=== PATIENT | female | born 1985 | race Caucasian/White ===

== ENCOUNTER → 2018-10-13 | Outpatient (CLI) | payer OTHER ==
[2018-10-13 11:04] LABS: ABSOLUTE BASOPHILS # (AUTO) 0.1 10^3/uL (0.0-0.2); ABSOLUTE EOSINOPHILS # (AUTO) 0.2 10^3/uL (0.0-0.6); ABSOLUTE MONOCYTES (AUTO) 1.1 10^3/uL (0.1-1.4); ABSOLUTE NEUT (AUTO) 6.7 10^3/uL (1.7-8.2); BASOPHILS % (AUTO) 0.7 % (0-2); EOSINOPHILS % (AUTO) 2.4 % (0-6); HEMATOCRIT 48.4 % (36.0-47.0); HEMOGLOBIN 16.8 g/dL (12.0-15.5); MEAN CORPUSCULAR HEMOGLOBIN 31.1 pg (27.0-33.4); MEAN CORPUSCULAR HGB CONC 34.7 g/dL (32.0-36.0); MEAN CORPUSCULAR VOLUME 90 fl (80-97); MONOCYTES % (AUTO) 10.7 % (3-13); PLATELET COUNT 252 10^3/uL (150-450); RED BLOOD COUNT 5.39 10^6/uL (3.72-5.28); RED CELL DISTRIBUTION WIDTH 13.8 % (11.5-14.0); SEGMENTED NEUTROPHILS % (AUTO) 66.2 % (42-78); TOTAL CELLS COUNTED % (AUTO) 100 %; WHITE BLOOD COUNT 10.2 10^3/uL (4.0-10.5)
[2018-10-13 11:26] LABS: ALANINE AMINOTRANSFERASE 55 U/L (9-52); ALBUMIN 4.5 g/dL (3.5-5.0); ALKALINE PHOSPHATASE 99 U/L (38-126); ANION GAP 12 (5-19); ASPARTATE AMINO TRANSFERASE 30 U/L (14-36); BILIRUBIN,DIRECT 0.3 mg/dL (0.0-0.4); BILIRUBIN,TOTAL 0.4 mg/dL (0.2-1.3); BLOOD UREA NITROGEN 14 mg/dL (7-20); CALCIUM 9.7 mg/dL (8.4-10.2); CARBON DIOXIDE 25 mmol/L (22-30); CHLORIDE 104 mmol/L (98-107); GLUCOSE 99 mg/dL (75-110); POTASSIUM 4.3 mmol/L (3.6-5.0); SODIUM 140.6 mmol/L (137-145); TOTAL PROTEIN 7.1 g/dL (6.3-8.2)
[2018-10-14 16:34] LABS: CHOLESTEROL 152.89 mg/dL (0-200); TRIGLYCERIDES 105 mg/dL (<150)
[2018-10-14 16:45] LABS: DIRECT LDL 111 mg/dL (<100)
== END ==
LOC: CCC 09:34
DX: Z00.00 Encounter for general adult medical examination without abnormal findings (principal)
CPT/HCPCS: 36415; 80053; 80061; 83036; 84443; 85025

== ENCOUNTER → 2018-11-04 | Outpatient (CLI) | payer OTHER ==
--- NOTE | 2018-11-04 18:05 | RADIOLOGY REPORT (SQ) ---
EXAM DESCRIPTION: MRI LUMBAR SPINE WITHOUT COMPLETED DATE/TIME: 11/04/2018 5:34 pm REASON FOR STUDY: (M54.5) LOW BACK PAIN M54.5 LOW BACK PAIN COMPARISON: None. TECHNIQUE: Sagittal and Axial imaging includes T1, T2, STIR and gradient echo sequences. Coronal T2/ HASTE imaging. LIMITATIONS: None. FINDINGS: VISUALIZED UPPER ABDOMEN: Limited evaluation. No acute or suspicious findings suggested. SEGMENTATION: No transitional anatomy. The lowest well-developed disc space is labeled L5-S1. ALIGNMENT: Anatomic. VERTEBRAE: Intact. BONE MARROW: Normal. No marrow replacement or reactive changes. DISC SIGNAL: Decreased height of the L4-5 disc space with decreased signal intensity. Annular tear a t this level. POSTERIOR ELEMENTS: Generally intact. No pars defect evident. HARDWARE: None in the spine. CORD AND CONUS: Normal in size and signal intensity. Conus at the T12-L1 level. SOFT TISSUES: No aortic aneurysm seen. No bulky retroperitoneal adenopathy or mass. No paraspinal mas s or fluid. L1-L2: No significant spinal stenosis or exit foraminal stenosis. L2-L3: No significant spinal stenosis or exit foraminal stenosis. L3-L4: No significant spinal stenosis or exit foraminal stenosis. L4-L5: Right central/ paracentral disc protrusion that displaces the traversing right nerve root. No foraminal stenosis. L5-S1: No significant spinal stenosis or exit foraminal stenosis. LOWER THORACIC: Incompletely imaged. No stenosis seen. SACRUM: Visualized upper sacrum intact. OTHER: No other significant findings. IMPRESSION: Right central/paracentral disc protrusion that displaces the traversing nerve root. TECHNICAL DOCUMENTATION: JOB ID: [id number]- All Rights Reserved Reading location - IP/workstation name: [email or web address]
== END ==
LOC: RAD 16:11
DX: M54.5 Low back pain (principal)
CPT/HCPCS: 72148

== ENCOUNTER 2018-12-28 20:35 | Emergency (ER) | payer OTHER ==
[2018-12-29] MEDS ORDERED: HYDROMORPHONE HCL INJ/PF 2 MG/ML AMPULE IM ONE (00:02)
[2018-12-29] MEDS ORDERED: DIAZEPAM INJ 10 MG/2 ML DISP.SYRIN IM ONE (01:02)
--- NOTE | 2018-12-29 02:28 | ER Document Report ---
ED General - General Chief Complaint: Low Back Pain Stated Complaint: BACK PAIN Time Seen by Provider: 12/28/18 23:41 Primary Care Provider: [facility] [Primary Care Provider] - Follow up in 3-5 days Notes: Patient is a 33-year-old female presents with complaint of low back pain patient has chronic low back pain but started having spasms into the muscles of her back that is every time she tries to move. She denies any weakness or numbness into her legs. No loss of bowel control. No urinary retention. No fevers. No recent trauma or injuries. No other complaints at this time. TRAVEL OUTSIDE OF THE [place] IN LAST 30 DAYS: No - Related Data Allergies/Adverse Reactions: codeine Allergy (Verified 12/28/18 23:23) Past Medical History - Social History Smoking Status: Current Every Day Smoker Chew tobacco use (# tins/day): No Frequency of alcohol use: Rare Drug Abuse: None Family History: Reviewed & Not Pertinent Patient has suicidal ideation: No Patient has homicidal ideation: No Renal/ Medical History: Denies: Hx Peritoneal Dialysis Past Surgical History: Reports: Hx Orthopedic Surgery - knee, 13 steroid ingections in back 2001 Review of Systems - Review of Systems Notes: My Normal Review Basic REVIEW OF SYSTEMS: CONSTITUTIONAL : Denies fever, chills, or sweats. Denies recent illness. RESPIRATORY: Denies cough, cold, or chest congestion. Denies shortness of breath, difficulty breathing, or wheezing. GASTROINTESTINAL: Denies abdominal pain. Denies nausea, vomiting, or diarrhea. MUSCULOSKELETAL: Low back pain. SKIN: Denies rash or skin lesions. NEUROLOGICAL: Denies sensory or motor loss. ALL OTHER SYSTEMS REVIEWED AND NEGATIVE. Physical Exam - Vital signs Vitals: Temp Pulse Resp BP Pulse Ox 98.2 F 102 H 20 161/84 H 96 12/28/18 20:57 12/28/18 20:57 12/28/18 20:57 12/28/18 20:57 12/28/18 20:57 - Notes Notes: General Appearance: Well nourished, alert, cooperative, no acute distress, moderate obvious discomfort. Vitals: reviewed, See vital signs table. Eyes: PERR Abdomen: Normal BS, soft, No rigidity, No abdominal tenderness, No guarding, no rebound, no abdominal masses, no organomegaly Back: Tightness and spasm into the lumbar paraspinal musculature bilaterally. No midline tenderness over the bony prominences. Extremities: good pulses in all extremities, no swelling or tenderness in the extremities, no edema. Skin: warm, dry, appropriate color, no rash Neuro: speech clear, oriented x 3, normal affect, responds appropriately to questions. Patient has normal strength of plantar and dorsiflexion against resistance. Good distal sensation into the feet and lower legs. Course - Re-evaluation Re-evalutation: 12/29/18 04:45 Patient has lower back pain which works his right lower paraspinal muscular spasm. I gave her a dose of Dilaudid which did seem to help her pain. I also gave her a dose of Valium which relieved her spasm. She feels much improved. I informed her to still move around over the next few days but not to do any heavy lifting or overexertion. I encouraged her return to ER if she has loss of bowel control, urinary tension, worsening pain, leg weakness or numbness, or if she feels unwell. Currently she has no signs or symptoms of central cord compression. Dictation of this chart was performed using voice recognition software; therefore, there may be some unintended grammatical errors. - Vital Signs Vital signs: Temp Pulse Resp BP Pulse Ox 98.1 F 93 18 142/70 H 94 12/29/18 02:34 12/29/18 02:34 12/29/18 02:34 12/29/18 02:34 12/29/18 02:34 Discharge - Discharge Clinical Impression: Lumbar paraspinal muscle spasm Condition: Good Disposition: HOME, SELF-CARE Additional Instructions: I have prescribed you Valium for muscle spasms. Valium will make you sleepy and may affect judgment and therefore you should not be driving or caring for young children after taking it. Please do not do any heavy lifting over the next several days. You should still get up and walk around a little bit so that you do not become stiff or locked up. Please take Tylenol 500 mg every 4 hours and ibuprofen 600 mg every 6 hours to help with inflammation and pain in your back. Return to ER if you have loss of bowel control, inability to urinate, leg weakness and numbness, or if you feel like you are worsening. Prescriptions: Diazepam [Valium 5 mg Tablet] 5 mg PO TIDP PRN #10 tablet PRN Reason: Muscle Spasms Forms: Return to Work Referrals: [facility] [Primary Care Provider] - Follow up in 3-5 days
[2018-12-29 02:35] VITALS: BP 142/70
== END 2018-12-29 02:35 | disposition home or self-care (01) ==
LOC: ER 20:35
DX: M62.830 Muscle spasm of back (principal); M54.5 Low back pain; G89.29 Other chronic pain; F17.200 Nicotine dependence, unspecified, uncomplicated; Z88.5 Allergy status to narcotic agent
CPT/HCPCS: 99283; 96372; J3360; J1170